=== PATIENT | male | born 1950 | race African-American/Black ===

== ENCOUNTER → 2016-10-22 | Outpatient (CLI) | payer OTHER ==
[~2016-10-22] MED LIST: ASPIRIN; ASPIRIN81 M1 PO; ATENOLOL; ATENOLOL PO; FLEXERIL10 MG PO; HYDROCODON-ACE1 EAC1 PO; MEDROL DOSEPAK4 MG PO; PLAVIX PO; VICODIN PO; ZOCOR; ZOCOR80 MG PO
--- NOTE | ~2016-10-22 | CT137 ---
[facility] A Service [facility] RADIOLOGY TEXT RESULTS PATIENT: VIJAY HOFFMAN LOCATION: [facility] : 54 UNIT #: [id number] AGE: [address]: Milagros Howard MD SEX: M ORDER DR: [id number] [place], [place] [address] [id number] O MR#: [id number] Acc #: [id number] NAME: VIJAY HOFFMAN. : 1950 SEX: M STUDY DATE/TIME: 10/22/2016 10:07 UNIT: [facility] ROOM: STUDY DESCRIPTION: CT Lung Screening annual Attending Physician: Milagros Howrad M.D. Referring Physician: iMlagros Howard M.D. Ordering Physician: Milagros Howard M.D. Primary Care Physician: Milagros Howard M.D. MEDICAL IMAGING REPORT This report is preliminary unless electronic signature is present EXAM CT lung cancer screening INDICATION Lung cancer screening. 40 pack year smoking history. PROCEDURE Unenhanced low-dose CT of the chest performed per lung cancer screening protocol CTDI 2.95 mGy. Total DLP 123 mGy-cm. TECHNIQUE This CT exam was performed with one or more of the following radiation dose reduction techniques: automatic exposure control, adjustment of mA and/or kV according to patient size, and iterative reconstruction. COMPARISON 09/16/2015 FINDINGS No suspicious pulmonary nodule. No adenopathy. Extensive coronary artery calcification. No acute findings in the upper abdomen. No aggressive appearing bone lesion. IMPRESSION 1. No suspicious pulmonary nodule. 2. Extensive coronary artery calcification, probably clinically significant. 3. Lung-RADS category 1S. Per the ACR lung-RADS recommendation suggest patient continue with annual low-dose lung cancer screening. Dictated by... Gael Gomez M.D. [facility] A Service [facility] RADIOLOGY TEXT RESULTS PATIENT: VIJAY HOFFMAN LOCATION: [facility] : 54 UNIT #: [id number] AGE: [address]: Milagros Howard MD SEX: M ORDER DR: THIS IS AN ELECTRONICALLY VERIFIED REPORT Gael Gomez M.D. at 10/23/2016 3:55 PM Jeannine TD: 10/23/2016 08:56 JOB #: [id number] MEDICAL IMAGING REPORT Page 1 of 1 COPY
== END | disposition home or self-care (01) ==
LOC: CCAT 09:23
DX: Z87.891 Personal history of nicotine dependence (principal); I25.10 Atherosclerotic heart disease of native coronary artery without angina pectoris
CPT/HCPCS: G0297

== ENCOUNTER → 2017-02-15 | Outpatient (CLI) | payer OTHER ==
--- NOTE | ~2017-02-15 | CR151 ---
[facility] A Service of [facility] RADIOLOGY TEXT RESULTS PATIENT: VIJAY HOFFMAN RAY LOCATION: [facility] : 54 UNIT #: [id number] AGE: [address]: EDITH NEWMAN MD SEX: M ORDER DR: [id number] [facility] [address] [place], [place] [address] [id number] O MR#: [id number] Acc #: [id number] NAME: VIJAY HOFFMAN : 1950 SEX: M STUDY DATE/TIME: 02/15/2017 12:05 UNIT: [facility] ROOM: STUDY DESCRIPTION: CR Hip Min 2 Views Rt Attending Physician: Edith Newman Referring Physician: Edith Newman Ordering Physician: Marie Not Listed Primary Care Physician: Milagros Howard M.D. MEDICAL IMAGING REPORT This report is preliminary unless electronic signature is present EXAM AP pelvis with frog view of the right hip, 02/15/2017. HISTORY Right hip pain worse when walking for over 1 year, worse in the last 3 months. Previous history of back surgery 4 years ago. COMPARISON None FINDINGS No pelvic fracture, hip fracture, or hip dislocation is seen. Hip joint spaces appear preserved. Femoral heads maintain normal round configuration. No pubic symphysis or sacroiliac joint diastasis. L3-S1 posterior spinal fusion with intervening disc spacer devices in place. IMPRESSION 1. Normal pelvis and right hip. 2. Posterior spinal fusion of the lumbosacral spine. Dictated by... Anamaria Ferrer M.D. THIS IS AN ELECTRONICALLY VERIFIED REPORT Anamaria Ferrer M.D. at 02/20/2017 3:26 PM CRUZ/luis TD: 02/16/2017 10:58 JOB #: [id number] MEDICAL IMAGING REPORT [facility] A Service of [facility] RADIOLOGY TEXT RESULTS PATIENT: VIJAY HOFFMAN LOCATION: [facility] : 54 UNIT #: [id number] AGE: [address]: EDITH NEWMAN MD SEX: M ORDER DR: Page 1 of 1 COPY
== END | disposition home or self-care (01) ==
LOC: CRAD 11:26
DX: M25.551 Pain in right hip (principal); M51.37 Other intervertebral disc degeneration, lumbosacral region; Z98.1 Arthrodesis status
CPT/HCPCS: 73502